=== PATIENT | female | born 1975 | race African-American/Black ===

== ENCOUNTER 2016-12-02 14:51 | Emergency (ER) | payer OTHER ==
[~2016-12-02] VITALS: Ht 167.6 cm; Wt 75.0 kg
[~2016-12-02 14:51] MED LIST: FIORIC PO; NAPR-576 PO
[2016-12-02 14:52] VITALS: BP 150/71; PULSE 78; RESP 18; TEMP 98.1; O2SAT 98
--- NOTE | 2016-12-02 16:30 | PD ---
HPI Chief Complaint: Cold / Flu Symptoms Time Seen by Provider: 16:30 Travel History International Travel<30 days: No Contact w/Intl Traveler<30days: No Traveled to known affect area: No History of Present Illness HPI 41-year-old female presents to the emergency Department with complaint of cough , nasal congestion, body aches, headache 3 days. Reports fever of 101.0 yesterday. Reports vomiting and diarrhea yesterday. No vomiting or diarrhea today. Denies sore throat, ear pain. Has taken nvhq-wvr-grzunpr medications for cold and flu with no symptom relief. Denies chest, shortness of breath, wheezing. Denies abdominal pain. Did not receive the influenza vaccine. No known allergies. Denies significant past medical history. No other modifying factors or associated signs and symptoms. PFSH Past Medical History Cerebrovascular Accident: No Diabetes: No Myocardial Infarction: No ?: Not LMP: 11/28/16 Social History Tobacco Use: Yes (dip) Allergies-Medications (Allergen,Severity, Reaction): Coded Allergies: No Known Allergies (Unverified , 12/02/16) Reported Meds & Prescriptions Reported Meds & Active Scripts Active Nasonex Nasal Boykins (Mometasone Furoate) 50 Mcg/Act Naspr 2 Boykins EACH NARE DAILY PRN Tessalon Perles (Benzonatate) 100 Mg Cap 100 Mg PO TID PRN Ibuprofen 800 Mg Tab 800 Mg PO Q6HR PRN Tamiflu (Oseltamivir Phosphate) 75 Mg Cap 75 Mg PO BID 5 Days Review of Systems Except as stated in HPI: all other systems reviewed are Neg Physical Exam Narrative GENERAL: Well-nourished, well-developed female patient, in no acute distress SKIN: Warm and dry. No rash. HEAD: Atraumatic. Normocephalic. EYES: Pupils equal and round at 3 mm with brisk reaction. No scleral icterus. No injection or drainage. PERRLA. ENT: Mucosa pink and moist. No erythema or exudates. No uvular edema. No uvular , palatal, or tonsillar deviation. Airway patent. EARS: Bilateral pinnae and external canals appear within normal limits. Bilateral tympanic membranes without erythema, dullness or perforation. NECK: Trachea midline. No lymphadenopathy. CARDIOVASCULAR: Regular rate and rhythm. No murmur appreciated. RESPIRATORY: No accessory muscle use. Clear to auscultation. Breath sounds equal bilaterally. GASTROINTESTINAL: Abdomen soft, non-tender, nondistended. Hepatic and splenic margins not palpable. Bowel sounds are active 4 quadrants. MUSCULOSKELETAL: No obvious deformities. No clubbing. No cyanosis. No edema. BACK: No CVA tenderness.NEUROLOGICAL: Awake and alert. Oriented 3. No obvious cranial nerve deficits. Motor grossly within normal limits. Normal speech. Moves all extremities. 5/5 strength to all extremities. PSYCHIATRIC: Appropriate mood and affect; insight and judgment normal. Data Data Last Documented VS Vital Signs Date Time Temp Pulse Resp B/P Pulse Ox O2 Delivery O2 Flow Rate FiO2 12/02/16 14:52 98.1 78 18 150/71 98 Room Air Orders Influenzae A/B Antigen (12/02/16 16:29) Chest, Single Ap (12/02/16 16:29) Ibuprofen (Motrin) (12/02/16 16:45) MDM Medical Decision Making Medical Screen Exam Complete: Yes Emergency Medical Condition: Yes Medical Record Reviewed: Yes Differential Diagnosis Influenza, pneumonia, bronchitis, viral illness Narrative Course 41-year-old female with cough/flu symptoms 3 days. Patient is afebrile and nontoxic-appearing. MAXIMUM TEMPERATURE 101.0 yesterday. Vomiting and diarrhea yesterday; denies today. Lungs are clear and equal throughout the patient is in no acute distress. No retractions or tachypnea. Suspecting viral illness. Influenza and chest x-ray ordered. 1714: Influenza A positive. 1724: Chest x-ray with no acute findings. Ibuprofen, Tessalon Perles, Nasonex nasal spray, Tamiflu prescribed for home. Patient is medically cleared and stable for discharge. Discussed reasons to return to the emergency department. Instructed patient to follow up with primary care provider. Patient agrees with treatment plan. The patients vital signs are stable and the patient is stable for outpatient follow-up and treatment. Patient discharged home, stable and in no acute distress. Diagnosis Primary Impression: Influenza A Referrals: Primary Care Physician Patient Instructions: General Instructions, Influenza (ED) Departure Forms: Tests/Procedures, Work Release Special Instructions: Do not return to work until fever free for 24 hours Additional Instructions: Ibuprofen or Tylenol as directed and as needed to reduce fever; may alternate ibuprofen and Tylenol as needed every 3 hours to minimize fever Aayg-lag-ltooalb antihistamines or decongestions as directed and as needed for symptom management Get plenty of sleep/rest Drink plenty of fluids to prevent dehydration Jal diet to encourage nutrition such as crackers, fruit, applesauce, toast, soup etc. Use an air humidifier/turn off ceiling fans Follow-up with your primary care provider Return immediately to the emergency department with worsening of symptoms Med/Other Pt SpecificInfo: Prescription(s) given Scripts Mometasone Nasal Boykins (Nasonex Nasal Boykins)50 Mcg/Act Naspr2 Boykins EACH NARE DAILY PRN (NASAL CONGESTION) #1 BOTTLE Ref 0 Prov:Celestina Garcia 12/02/16 Benzonatate (Tessalon Perles)100 Mg [id number] Mg PO TID PRN (COUGH) #20 CAP Ref 0 Prov:Celestina Garcia 12/02/16 Ibuprofen 800 Mg [id number] Mg PO Q6HR PRN (PAIN) #30 TAB Ref 0 Prov:Celestina GarciaP 12/02/16 Oseltamivir (Tamiflu)75 Mg Cap75 Mg PO BID 5 Days Ref 0 Prov:Celestina Garcia 12/02/16 Disposition: 01 DISCHARGE HOME Condition: Stable Celestina Garcia Dec 02, 2016 16:30
[2016-12-02] MEDS ORDERED: IBUP800T23 PO ×2 (16:35→17:17)
[2016-12-02] MEDS ORDERED: BENZ100 PO ×2 (16:35→17:17)
[2016-12-02] MEDS ORDERED: MOME17I EACH NARE ×2 (16:35→17:17)
[2016-12-02] MEDS ORDERED: IBUPROFEN 800 MG TAB PO ONE (16:45)
[2016-12-02] MEDS ORDERED: OSEL75 PO (17:15)
--- NOTE | 2016-12-02 17:19 | RADRPT ---
EXAM DATE/TIME: 12/02/2016 16:53 [facility] COMPARISON: No previous studies available for comparison. INDICATIONS : Fever. MEDICAL HISTORY : None. SURGICAL HISTORY : None. ENCOUNTER: Initial ACUITY: 1 day PAIN SCORE: 0/10 LOCATION: Bilateral chest FINDINGS: A single view of the chest demonstrates the lungs to be symmetrically aerated without evidence of mas s, infiltrate or effusion. The cardiomediastinal contours are unremarkable. Osseous structures are intact. CONCLUSION: 1. No acute cardiopulmonary disease. Rinku Hallman MD on December 02, 2016 at 17:17 Board Certified Radiologist. This report was verified electronically.
== END 2016-12-02 18:00 | disposition home or self-care (01) ==
LOC: NEPB 14:51
DX: J09.X2 Influenza due to identified novel influenza A virus with other respiratory manifestations (principal)
CPT/HCPCS: 71010; 87804; 99283

== ENCOUNTER 2018-03-13 13:34 | Emergency (ER) | payer MEDICAID, OTHER ==
[~2018-03-13] VITALS: Ht 172.7 cm; Wt 75.0 kg
[~2018-03-13 13:34] MED LIST changes: +BENZ100 PO; -FIORIC PO; +IBUP1TAB7 PO; +MOME17I EACH NARE; -NAPR-576 PO; +OSEL75 PO
[2018-03-13 13:41] VITALS: BP 169/96; PULSE 101; RESP 22; TEMP 98.5; O2SAT 95
[2018-03-13] MEDS ORDERED: KETOROLAC TROMETHAMINE 30 MG/ML (IVP) VIAL IV PUSH ONE (14:15)
--- NOTE | 2018-03-13 14:15 | PD ---
HPI . Cold symptoms Chief Complaint: Cold / Flu Symptoms Time Seen by Provider: 13:50 Travel History International Travel<30 days: No Contact w/Intl Traveler<30days: No Traveled to known affect area: No History of Present Illness HPI Patient presents with cold symptoms. Onset was 2 days ago. She complains with headache, sore throat, nasal congestion, cough and myalgias. She has started having muscle spasms in route to the hospital. She states that she was in route to the hospital for treatment for her cold when the muscle spasm started. She rates her pain 10/10. She has had 1 Advil 2 days ago for her symptoms. Otherwise, no treatment prior to presentation. PFSH Past Medical History Cerebrovascular Accident: No Diabetes: No Diminished Hearing: No Musculoskeletal: Yes (CHRONIC BACK AND NECK PAIN) Myocardial Infarction: No Tetanus Vaccination: > 5 Years Influenza Vaccination: No ?: Not LMP: 03/13/18 : 3 Para: 3 Miscarriage: 0 : 0 Past Surgical History Section: Yes Social History Alcohol Use: Yes Tobacco Use: Yes (CHEWING TOBACCO) Substance Use: No Allergies-Medications (Allergen,Severity, Reaction): Coded Allergies: No Known Allergies (Unverified Adverse Reaction, Unknown, 03/13/18) Reported Meds & Prescriptions Reported Meds & Active Scripts Active No Active Prescriptions or Reported Medications Review of Systems Except as stated in HPI: all other systems reviewed are Neg General / Constitutional: Positive: Fever, Chills HENT: Positive: Headaches, Sore Throat Respiratory: Positive: Cough Musculoskeletal: Positive: Myalgias Physical Exam Narrative Vital Signs Date Time Temp Pulse Resp B/P (MAP) Pulse Ox O2 Delivery O2 Flow Rate FiO2 03/13/18 13:41 98.5 101 22 169/96 (120) 95 GENERAL: Histrionic. Awake and alert. SKIN: warm/dry. HEAD: Normocephalic. Atraumatic. EYES: Pupils equal and round. Extraocular movements are intact. ENT: Mucous membranes pink and moist. Nasal congestion with clear rhinorrhea. Oropharynx pink and moist with no erythema, exudate or tonsillar enlargement. NECK: Supple. Full range of motion without pain. No cervical lymphadenopathy. CARDIOVASCULAR: Regular rate and rhythm. Heart sounds are normal. RESPIRATORY: No accessory muscle use. Clear to auscultation. Breath sounds equal bilaterally. MUSCULOSKELETAL: No obvious deformities. Normal muscle tone. NEUROLOGICAL: Awake and alert. No obvious cranial nerve deficits. Motor grossly within normal limits. Normal speech. PSYCHIATRIC: Appropriate mood and affect; insight and judgment normal. Data Data Last Documented VS Vital Signs Date Time Temp Pulse Resp B/P (MAP) Pulse Ox O2 Delivery O2 Flow Rate FiO2 03/13/18 13:41 98.5 101 22 169/96 (120) 95 Orders Orders Ketorolac Inj (Toradol Inj) (03/13/18 14:15) Ed Discharge Order (03/13/18 14:11) MDM Medical Decision Making Medical Screen Exam Complete: Yes Emergency Medical Condition: Yes Differential Diagnosis Differential diagnosis includes but is not limited to influenza, upper respiratory infection, bronchitis, pneumonia Narrative Course This patient presents for the evaluation and treatment of cold symptoms. She will be discharged home with a list of outpatient treatment options for the symptomatic treatment of a cold. She is complaining with myalgias and muscle spasms here. She will be given Toradol prior to discharge. Diagnosis Primary Impression: Upper respiratory infection Qualified Codes: J06.9 - Acute upper respiratory infection, unspecified Patient Instructions: General Instructions Departure Forms: Tests/Procedures Additional Instructions: I recommend the use of a Neti Pot. You may use a nasal spray such as Afrin for up to 3 days as needed for nasal congestion. You may take an jvqn-owp-ntkxdee antihistamine such as Zyrtec, Nisa or Claritin as needed for runny secretions. You may take pseudoephedrine as needed for congestion. You will need to sign for this at the pharmacy. You may take plain Mucinex, 1200 mg twice a day as needed for thick secretions. You may take a cough syrup such as Delsym as needed for cough. Motrin as needed for fever and body aches. Throat lozenges/sprays as needed for sore throat. Warm salt water gargles for sore throat. Hot tea with lemon and honey also helps soothe a sore throat. Scripts No Active Prescriptions or Reported Meds Disposition: 01 DISCHARGE HOME Condition: Stable Penny Hensley MD Mar 13, 2018 14:15
== END 2018-03-13 15:08 | disposition home or self-care (01) ==
LOC: NEPD 13:34
DX: J06.9 Acute upper respiratory infection, unspecified (principal); M62.838 Other muscle spasm; R51 Headache; F17.220 Nicotine dependence, chewing tobacco, uncomplicated
CPT/HCPCS: 96374; 99284; J1885